=== PATIENT | female | born 1995 | race Caucasian/White ===

== ENCOUNTER → 2016-11-20 | Outpatient (CLI) | payer OTHER ==
--- NOTE | 2016-11-20 14:36 | US ---
EXAMINATION TYPE: US pelvic complete DATE OF EXAM: 11/20/2016 2:04 PM COMPARISON: NONE CLINICAL HISTORY: R10.2 Pelvic Pain, IUD Placement Z97.5. TECHNIQUE: Date of LMP: 11/16/2016 EXAM MEASUREMENTS: Uterus: 10.2 x 4.3 x 5.6 cm Endometrial Stripe: 0.5 cm Right Ovary: 4.3 x 1.9 x 3.8 cm Left Ovary: 5.2 x 3.5 x 4.6 cm 1. Uterus: Anteverted IUD seen in place 2. Endometrium: wnl 3. Right Ovary: wnl 4. Left Ovary: 3.9 x 2.9 x 3.6 cm complex area this may be an involuting cyst. Follow-up is recommen ded. Spectral, color and waveform doppler imaging shows good arterial and venous flow within the ovaries ; there is no evidence for ovarian torsion. 5. Bilateral Adnexa: wnl 6. Posterior cul-de-sac: no free fluid Urinary bladder is sonolucent. Posterior wall is normal. IMPRESSION: 1. IUD within the uterus. 2. Left ovarian cyst. Follow-up is recommended.
== END | disposition home or self-care (01) ==
LOC: RADUSWWP 13:43
PROVIDERS: ATTEND Obstetrics & Gynecology
DX: N83.202 Unspecified ovarian cyst, left side (principal); Z97.5 Presence of (intrauterine) contraceptive device
CPT/HCPCS: 76856

== ENCOUNTER → 2017-01-29 | Outpatient (CLI) | payer OTHER ==
--- NOTE | 2017-01-29 15:14 | US ---
EXAMINATION TYPE: US pelvic complete DATE OF EXAM: 01/29/2017 COMPARISON: NONE CLINICAL HISTORY: 21-year-old female previous ovarian Cyst N83.20. F/U to ovarian cysts on the left TECHNIQUE: Multiple transabdominal sonographic images of the pelvis are obtained. Date of LMP: 01/25/2017 FINDINGS: Uterus: Anteverted measuring 9.1 x 6.4 x 4.4 cm Endometrial Stripe: 0.4 cm, within normal limits with an IUD visualized appropriately situated along the uterine cavity. Right Ovary: 3.3 x 2.8 x 2.3 cm, normal size with follicular change. Left Ovary: 3.2 x 3.3 x 2.2 cm, normal size with follicular change. No evident adnexal abnormality or cul-de-sac free fluid. IMPRESSION: Normal follicular change in both ovaries. The previous complex left ovarian cyst has resolved.
== END | disposition home or self-care (01) ==
LOC: RADUSWWP 13:44
PROVIDERS: ATTEND Obstetrics & Gynecology
DX: N83.202 Unspecified ovarian cyst, left side (principal)
CPT/HCPCS: 76856

== ENCOUNTER 2017-02-12 21:27 | Emergency (ER) | payer OTHER ==
--- NOTE | 2017-02-12 22:26 | ED ---
General Adult HPI - General Chief complaint: Wound/Laceration Stated complaint: Neck Laceration Time Seen by Provider: 02/12/17 21:51 Source: patient, RN notes reviewed Mode of arrival: ambulatory Limitations: physical limitation - History of Present Illness Initial comments: 21-year-old female presents with laceration to the left side of her neck. Patient was cutting a pepper and she chipped one of her children's toys and knife like across the left side of her neck. Patient initially had pressure and tried to apply skin glue but she noted that the bleeding persists so she came in for evaluation. She denies any difficulty breathing. She is uncertain of her tetanus status. Patient has past medical history of SVT. She is currently not on any medication. - Related Data Home Medications Medication Instructions Recorded Confirmed Citalopram Hydrobromide [CeleXA] 20 mg PO HS 07/12/15 05/07/16 Loratadine [Claritin] 10 mg PO DAILY PRN 07/12/15 05/07/16 Cholecalciferol [Vitamin D3] 1,000 unit PO DAILY 04/04/16 05/07/16 Fludrocortisone [Florinef] 0.1 mg PO DAILY 04/04/16 05/07/16 Omeprazole [PriLOSEC] 10 mg PO DAILY PRN 04/04/16 05/07/16 Previous Rx's Medication Instructions Recorded Albuterol Inhaler [Ventolin Hfa 2 puff INHALATION Q6HR PRN #1 05/07/16 Inhaler] inhaler predniSONE 20 mg PO BID #10 tab 05/07/16 Allergies Allergy/AdvReac Type Severity Reaction Status Date / Time oxycodone Allergy Mild Nausea & Verified 05/07/16 14:58 Vomiting Review of Systems ROS Statement: Those systems with pertinent positive or pertinent negative responses have been documented in the HPI. ROS Other: All systems not noted in ROS Statement are negative. Past Medical History Past Medical History: Supraventricular Tachycardia (SVT) Additional Past Medical History / Comment(s): Ablasion 2012, History of Any Multi-Drug Resistant Organisms: None Reported Past Surgical History: Ablation, Adenoidectomy, Tonsillectomy Past Psychological History: Anxiety, Depression Smoking Status: Current every day smoker Past Alcohol Use History: Occasional Past Drug Use History: Marijuana General Exam Limitations: physical limitation General appearance: alert, in no apparent distress Head exam: Present: atraumatic, normocephalic Eye exam: Present: normal appearance, PERRL ENT exam: Present: mucous membranes moist, other (Patient has a 10 m laceration to the left side of her neck. This is superficial in nature. There is no violation of the platysma. No underlying vascular injury. No airway involvement.) Respiratory exam: Present: normal lung sounds bilaterally, respiratory distress Cardiovascular Exam: Present: regular rate, normal rhythm GI/Abdominal exam: Present: soft. Absent: distended, tenderness, guarding Extremities exam: Present: normal capillary refill. Absent: normal inspection Neurological exam: Present: alert, oriented X3 Skin exam: Present: warm, dry Course Vital Signs 02/12/17 21:49 Temperature 100.1 F H Pulse Rate 111 H Respiratory 16 Rate Blood Pressure 136/82 O2 Sat by Pulse 98 Oximetry Procedures - Laceration Laceration #1 Consent Obtained: verbal consent Time Out Performed: Yes Indication: laceration Site: other (Neck) Description: linear Depth: simple, single layer Anesthetic Used: lidocaine 1% Anesthesia Technique: local infiltration Pre-repair: wound explored, irrigated extensively, deep structures intact Type of Sutures: nylon Size of Sutures: 6-0 Number of Sutures: 8 Technique: simple, interrupted Patient Tolerated Procedure: well, no complications Medical Decision Making - Medical Decision Making Review of female presenting with superficial laceration to the left side of her neck. She did this with a kitchen knife. There is no concern for foreign body. Patient's tetanus is updated emergency department. Laceration is superficial in nature. There is no injury to the underlying structures. The entire base of the laceration is visible. There is no visible injury to the underlying muscle. Laceration is irrigated and cleansed, and repaired with 6-0 nylon suture. Patient is instructed to have sutures removed in approximately 5- 6 days. She will have a stent in her primary care physician or return to the emergency department as needed. Disposition Clinical Impression: Laceration Disposition: HOME SELF-CARE Condition: Good Instructions: Laceration (ED) Additional Instructions: Patient will follow-up with her primary care physician for suture removal in 5 days. Referrals: Chema Joe MD [Primary Care Provider] - 1-2 days Time of Disposition: 22:26
[2017-02-12] MEDS ORDERED: DIPH,PERTUS(ACELL)TETVAC-LF 0.5 ML VIAL IM ONE (22:49)
[2017-02-12 22:51] VITALS: BP 119/59; PULSE 71; RESP 18; TEMP 98.2
== END 2017-02-12 23:10 | disposition home or self-care (01) ==
LOC: EC 21:27
DX: S11.91XA Laceration without foreign body of unspecified part of neck, initial encounter (principal); W26.0XXA Contact with knife, initial encounter; Y93.G1 Activity, food preparation and clean up; F32.9 Major depressive disorder, single episode, unspecified; F17.200 Nicotine dependence, unspecified, uncomplicated; F41.9 Anxiety disorder, unspecified; Z23 Encounter for immunization; Z79.899 Other long term (current) drug therapy; Z88.5 Allergy status to narcotic agent
CPT/HCPCS: 12001; 90471; 90715; 99282

== ENCOUNTER → 2017-04-19 | Outpatient (CLI) | payer OTHER ==
[2017-04-19 11:08] LABS: CHCM 32.1; HCT 42.8 % (34.0-46.0); HDW 2.03; MCH 30.6 pg (25.0-35.0); MCHC 32.6 g/dL (31.0-37.0); MCV 93.8 fL (80.0-100.0); RBC 4.56 m/uL (3.80-5.40); RDW 13.2 % (11.5-15.5); WBC 8.9 k/uL (3.8-10.6)
[2017-04-19 11:19] LABS: ALT 36 U/L (9-52); AST 17 U/L (14-36); Alkaline Phosphatase 78 U/L (38-126); Anion Gap 10 mmol/L; Blood Urea Nitrogen 15 mg/dL (7-17); Calcium 9.6 mg/dL (8.4-10.2); Carbon Dioxide 24 mmol/L (22-30); Chloride 104 mmol/L (98-107); Cholesterol 126 mg/dL (<200); Glucose 89 mg/dL (74-99); HDL Cholesterol 69 mg/dL (40-60); Non-African American GFR(MDRD) >60 (>60 ml/min/1.73 sqM); Potassium 4.4 mmol/L (3.5-5.1); Sodium 138 mmol/L (137-145); Total Bilirubin 0.9 mg/dL (0.2-1.3); Total Protein 7.2 g/dL (6.3-8.2)
[2017-04-19 11:21] LABS: Appearance,Urine Cloudy (Clear); Bilirubin,Urine Negative (Negative); Glucose,Urine (UA) Negative (Negative); Ketones,Urine Negative (Negative); Leukocyte Esterase,Urine Negative (Negative); Mucus,Urine Rare /hpf; Nitrite,Urine Negative (Negative); PH, Urine 6.5 (5.0-8.0); Particle Count 1850; Protein,Urine Negative (Negative); Specific Gravity,Urine 1.018 (1.001-1.035); Squamous Epithelial Cell,Urine 5 /hpf (0-4); UA Billing (MACRO vs. MICRO) MICRO; Urobilinogen,Urine <2.0 mg/dL (<2.0); WBC,Urine 1 /hpf (0-5)
--- NOTE | 2017-04-19 11:54 | XR ---
EXAMINATION TYPE: XR chest 2V DATE OF EXAM: 04/19/2017 COMPARISON: 05/07/2016 HISTORY: Physical examination TECHNIQUE: Frontal and lateral views of the chest are obtained. FINDINGS: There is no focal air space opacity, pleural effusion, or pneumothorax seen. The cardiac silhouette size is within normal limits. The osseous structures are intact. IMPRESSION: No acute cardiopulmonary process, unchanged from the prior.
== END | disposition home or self-care (01) ==
LOC: LABWHC1 10:18
PROVIDERS: ATTEND Internal Medicine
DX: Z00.00 Encounter for general adult medical examination without abnormal findings (principal); I49.9 Cardiac arrhythmia, unspecified; K21.0 Gastro-esophageal reflux disease with esophagitis; F41.9 Anxiety disorder, unspecified; D50.9 Iron deficiency anemia, unspecified; R35.0 Frequency of micturition
CPT/HCPCS: 36415; 71020; 80053; 80061; 81001; 84439; 84443; 85027; 87491; 87591

== ENCOUNTER 2023-08-22 11:21 | Emergency (ER) | payer OTHER ==
[2023-08-22 11:49] VITALS: RESP 18; TEMP 98
[2023-08-22 11:51] LABS: Appearance,Urine Cloudy (Clear); Bacteria,Urine Occasional /hpf; Bilirubin,Urine Negative (Negative); Blood,Urine Large (Negative); Color,Urine Light Yellow; Glucose,Urine (UA) Negative (Negative); Ketones,Urine Negative (Negative); Leukocyte Esterase,Urine Negative (Negative); Mucus,Urine Rare /hpf; Nitrite,Urine Negative (Negative); Protein,Urine Trace (Negative); RBC,Urine 128 /hpf (0-5); Specific Gravity,Urine 1.008 (1.001-1.035); Squamous Epithelial Cell,Urine 8 /hpf (0-4); Urobilinogen,Urine <2.0 mg/dL (<2.0); WBC,Urine 5 /hpf (0-5)
--- NOTE | 2023-08-22 12:19 | ED ---
Female Urogenital HPI - General Chief complaint: Urogenital Stated complaint: vaginal bleeding Time Seen by Provider: 08/22/23 11:34 Source: patient, RN notes reviewed Mode of arrival: ambulatory Limitations: no limitations - History of Present Illness Initial comments: 27-year-old female sent emergency Department chief complaint of hematuria. Patient states that she noticed when she urinates or blood in her urine. She states her some burning, sharp pain. Patient states she's had no fever no nausea vomiting denies any chance denies any flank pain. - Related Data Home Medications Medication Instructions Recorded Confirmed Citalopram Hydrobromide [CeleXA] 20 mg PO HS 07/12/15 02/12/17 Loratadine [Claritin] 10 mg PO DAILY PRN 07/12/15 02/12/17 Cholecalciferol [Vitamin D3] 1,000 unit PO DAILY 04/04/16 02/12/17 Fludrocortisone [Florinef] 0.1 mg PO DAILY 04/04/16 02/12/17 Omeprazole [PriLOSEC] 10 mg PO DAILY PRN 04/04/16 02/12/17 Previous Rx's Medication Instructions Recorded Ketorolac [Toradol] 10 mg PO Q8HR #15 tab 08/22/23 Ondansetron Odt [Zofran Odt] 4 mg PO Q8HR PRN #10 tab 08/22/23 Allergies Allergy/AdvReac Type Severity Reaction Status Date / Time oxycodone AdvReac Mild Nausea & Verified 08/22/23 11:31 Vomiting Review of Systems ROS Statement: Those systems with pertinent positive or pertinent negative responses have been documented in the HPI. ROS Other: All systems not noted in ROS Statement are negative. Past Medical History Past Medical History: Supraventricular Tachycardia (SVT) Additional Past Medical History / Comment(s): Ablasion 2012, History of Any Multi-Drug Resistant Organisms: None Reported Past Surgical History: Ablation, Adenoidectomy, Tonsillectomy Past Psychological History: Anxiety, Depression Smoking Status: Vaper Past Alcohol Use History: Occasional Past Drug Use History: Marijuana General Exam Limitations: no limitations General appearance: alert, in no apparent distress Head exam: Present: atraumatic, normocephalic, normal inspection Eye exam: Present: normal appearance, PERRL, EOMI. Absent: scleral icterus, conjunctival injection, periorbital swelling ENT exam: Present: normal exam, normal oropharynx, mucous membranes moist Neck exam: Present: normal inspection, full ROM. Absent: tenderness, meningismus, lymphadenopathy Respiratory exam: Present: normal lung sounds bilaterally. Absent: respiratory distress, wheezes, rales, rhonchi, stridor Cardiovascular Exam: Present: regular rate, normal rhythm, normal heart sounds. Absent: systolic murmur, diastolic murmur, rubs, gallop, clicks GI/Abdominal exam: Present: soft, normal bowel sounds. Absent: distended, tenderness, guarding, rebound, rigid Back exam: Absent: CVA tenderness (R), CVA tenderness (L) Neurological exam: Present: alert, oriented X3, CN II-XII intact Skin exam: Present: warm, dry, intact, normal color. Absent: rash Course Vital Signs 08/22/23 08/22/23 08/22/23 11:28 12:31 13:48 Temperature 98 F 98 F 98 F Pulse Rate 74 74 78 Respiratory 18 18 18 Rate Blood Pressure 132/78 128/79 129/76 O2 Sat by Pulse 99 99 99 Oximetry Medical Decision Making - Medical Decision Making Was pt. sent in by a medical professional or institution (, PA, SCREENING TECHNICIAN, urgent care, hospital, or alf...) When possible be specific @ -No Did you speak to anyone other than the patient for history (EMS, parent, family, police, friend...)? What history was obtained from this source @ -No Did you review nursing and triage notes (agree or disagree)? Why? @ -I reviewed and agree with nursing and triage notes Were old charts reviewed (outside hosp., previous admission, EMS record, old EKG, old radiological studies, urgent care reports/EKG's, alf records)? Report findings @ -No old charts were reviewed Differential Diagnosis (chest pain, altered mental status, abdominal pain women, abdominal pain men, vaginal bleeding, weakness, fever, dyspnea, syncope, headache, dizziness, GI bleed, back pain, seizure, CVA, palpatations, mental health, musculoskeletal)? @ -[nDifferential Abdominal Pain Women: Appendicitis, Cholecystitis, diverticulosis, ischemic bowel, pancreatitis, hepatitis, UTI, gastroenteritis, AAA, incarcerated hernia, bowel obstruction, constipation, inflammatory bowel, hepatitis, peptic ulcer disease, splenic infarction, perforated viscus, vulvitis, ovarian torsion, PID, kidney stone, placenta abruption, this is not meant to be an all-inclusive list EKG interpreted by me (3pts min.). @ -[None X-rays interpreted by me (1pt min.). @ -None done CT interpreted by me (1pt min.). @ -CT of abdomen and pelvis show no evidence of distal left acute calculus U/S interpreted by me (1pt. min.). @ -None done What testing was considered but not performed or refused? (CT, X-rays, U/S, labs)? Why? @ -None What meds were considered but not given or refused? Why? @ -None Did you discuss the management of the patient with other professionals (professionals i.e. , PA, SCREENING TECHNICIAN, lab, RT, psych nurse, director of social services, application support, teacher, principal gifts officer, casey saw operator)? Give summary @ -No Was smoking cessation discussed for >3mins.? @ -No Was critical care preformed (if so, how long)? @ -No Were there social determinants of health that impacted care today? How? (Homelessness, low income, unemployed, alcoholism, drug addiction, transportation, low edu. Level, literacy, decrease access to med. care, snf, rehab)? @ -No Was there de-escalation of care discussed even if they declined (Discuss DNR or withdrawal of care, Hospice)? DNR status @ -No What co-morbidities impacted this encounter? (DM, HTN, Smoking, COPD, CAD, Cancer, CVA, ARF, Chemo, Hep., AIDS, mental health diagnosis, sleep apnea, morbid obesity)? @ -None Was patient admitted / discharged? Hospital course, mention meds given and route, prescriptions, significant lab abnormalities, going to OR and other pertinent info. @ -Discharge patient presented for hematuria patient does not have any evidence of UTI. Patient's CT shows evidence of kidney stone we discharged in stable condition. Undiagnosed new problem with uncertain prognosis? @ -No Drug Therapy requiring intensive monitoring for toxicity (Heparin, Nitro, Insulin, Cardizem)? @ -No Were any procedures done? @ -No Diagnosis/symptom? @ -Left ureteral calculi Acute, or Chronic, or Acute on Chronic? @ -Acute Uncomplicated (without systemic symptoms) or Complicated (systemic symptoms)? @ -Uncomplicated] Side effects of treatment? @ -[No] Exacerbation, Progression, or Severe Exacerbation? @ -[No] Poses a threat to life or bodily function? How? (Chest pain, [place], [place], pneumonia, PE, COPD, DKA, ARF, appy, cholecystitis, CVA, Diverticulitis, Homicidal, Suicidal, threat to staff... and all critical care pts) @ -[No] - Lab Data Lab Results 08/22/23 08/22/23 Range/Units 11:42 11:42 Urine Color Light Yellow Urine Appearance Cloudy H (Clear) Urine pH 6.0 (5.0-8.0) Ur Specific Velma 1.008 (1.001-1.035) Urine Protein Trace H (Negative) Urine Glucose (UA) Negative (Negative) Urine Ketones Negative (Negative) Urine Blood Large H (Negative) Urine Nitrite Negative (Negative) Urine Bilirubin Negative (Negative) Urine Urobilinogen <2.0 (<2.0) mg/dL Ur Leukocyte Esterase Negative (Negative) Urine RBC 128 H (0-5) /hpf Urine WBC 5 (0-5) /hpf Ur Squamous Epith Cells 8 H (0-4) /hpf Urine Bacteria Occasional H (None) /hpf Urine Mucus Rare H (None) /hpf Urine HCG, Qual Not Detected (Not Detectd) Disposition Clinical Impression: Urethral calculus Disposition: HOME SELF-CARE Condition: Stable Instructions (If sedation given, give patient instructions): Kidney Stones (ED) Additional Instructions: Please return to the Emergency Department if symptoms worsen or any other concerns. Prescriptions: Ketorolac [Toradol] 10 mg PO Q8HR #15 tab Ondansetron Odt [Zofran Odt] 4 mg PO Q8HR PRN #10 tab PRN Reason: Nausea Is patient prescribed a controlled substance at d/c from ED?: No Referrals: Rome Shelby MD [Primary Care Provider] - 1-2 days Time of Disposition: 13:30
--- NOTE | 2023-08-22 12:30 | CT ---
EXAMINATION TYPE: CT abdomen pelvis wo con DATE OF EXAM: 08/22/2023 HISTORY: Hematuria x [address] DLP: 320.3 mGycm. Automated Exposure Control for Dose Reduction was Utilized. TECHNIQUE: CT scan of the abdomen and pelvis is performed without oral or IV contrast. COMPARISON: NONE FINDINGS: Within the limitations of a non-contrast study, the following observations are made. LUNG BASES: No significant abnormality is appreciated. LIVER/GB: No significant abnormality is appreciated. PANCREAS: No significant abnormality is seen. SPLEEN: No significant abnormality is seen. ADRENALS: No significant abnormality is seen. KIDNEYS: Possible punctate 1 mm nonobstructing calculus lower pole left kidney coronal image 41. Ther e is 3 to 4 mm calculus suspected in the distal left ureter axial image 103. There is mild to minimal left-sided hydronephrosis. No right-sided renal calculus or hydronephrosis. BOWEL: No abnormal small or large bowel dilatation. GENITAL ORGANS: Anteverted uterus. Small to moderate amount of free fluid in the right pelvis. LYMPH NODES: No greater than 1cm abdominal or pelvic lymph nodes are appreciated. OSSEOUS STRUCTURES: No significant abnormality is seen. OTHER: No significant additional abnormality is seen. IMPRESSION: There is 3 to 4 mm calculus at left UVJ felt present causing mild to minimal left-sided h ydronephrosis.
[2023-08-22] MEDS ORDERED: ACET/COD 300 MG/30 MG STARTER PACK 6 TAB BTL PO STA (13:29)
[2023-08-22] MEDS ORDERED: KETOROLAC 15 MG/ML 1 ML VIAL IM STA (13:37)
[2023-08-22 13:52] VITALS: BP 129/76; PULSE 78
== END 2023-08-22 13:50 | disposition home or self-care (01) ==
LOC: EC 11:21
DX: N13.2 Hydronephrosis with renal and ureteral calculous obstruction (principal); F12.90 Cannabis use, unspecified, uncomplicated; F17.290 Nicotine dependence, other tobacco product, uncomplicated; Z86.59 Personal history of other mental and behavioral disorders; Z88.5 Allergy status to narcotic agent
CPT/HCPCS: 81001; 81025; 74176; 99284; 96372; J1885